=== PATIENT | female | born 1990 | race Caucasian/White ===

== ENCOUNTER 2019-12-25 18:56 | Inpatient (IN) | payer OTHER ==
[2019-12-25] MEDS ORDERED: fentaNYL 100 MCG/2 ML SDV EPIDUR PRN (19:50)
[2019-12-25] MEDS ORDERED: ePHEDrine 50 MG/ML SDV IVPUSH PRN (19:50)
[2019-12-25] MEDS ORDERED: diphenhydrAMINE 50 MG/ML SDV IVPUSH PRN (19:50)
[2019-12-25] MEDS ORDERED: Sodium Chloride 0.9% 10 ML Syringe FLUSH PRN (20:07)
[2019-12-25] MEDS ORDERED: Ondansetron 4 MG/2 ML SDV IVPUSH PRN (20:07)
[2019-12-25] MEDS ORDERED: Oxytocin/Lactated Ringers 10 UNIT/1,000 ML BAG IV SCH ×2 (20:15)
--- NOTE | 2019-12-25 20:49 | PCM.LDHP ---
L&D History of Present Illness - General Date of Service: 12/25/19 Admit Problem/Dx: Patient Status Order with Admit Dx/Problem 12/25/19 20:07 Patient Status [ADT] Routine Admission Diagnosis/Problem Admission Diagnosis/Problem 12/25/19 20:37 Varsha is a 29-year-old 1 para 0 female who is presently at 39-5/7 weeks gestational age with an AFIA of 12/27/2019 who is admitted on the evening of 12/25/2019 for elective induction of labor. Source of Information: Patient History Limitations: Reports: No Limitations - History of Present Illness Introduction:: Varsha is a 29-year-old 1 para 0 female who is presently at 39-5/7 weeks gestational age with an AFIA of 12/27/2019 who is admitted on the evening of 12/25/2019 for elective induction of labor.The procedure and process of elective induction of labor, its risks, benefits, alternatives of care such as allowing for onset of natural labor along with follow-up were all discussed in detail with patient. She appears to understand and wishes to proceed. 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 18 weeks and 6 days and 22 weeks and 1 day. Patient's last menstrual period was relatively certain. Her cycles occur every 30 days. She had menarche at age 11. She is not using any control to time conception. She has had one abnormal Pap smear proximal 8 years ago followed by colposcopy and removal of some abnormal cells. She denies any other STI's. course: Patient was seen on a very regular basis. She had her first visit on 06/09/2019. She was seen on a regular basis. She was a centering patient. Her weigh 18 during the course of was from 217 pounds to 234 pounds for a 17 pound increase. Her vital signs remained stable throughout the course and her fundal height growth was appropriate. She is group B strep negative. She is Rh- with type a blood and had been administered on 10/03/2019. She had prequel noninvasive screen performed which returned negative. She is immune to varicella. She plans to breast-feed. She would like to have an epidural for labor analgesia. She is noted at first pelvis to have somewhat of a narrow pubic arch/borderline pelvis. Patient had her flu shot on 07/11/2019. Her diphtheria, pertussis, tetanus immunization was given on 11/14/2019. She is rubella immune. She had her hepatitis B immunization course in 2000. Laboratory testing shows blood to be A- with a negative MRI screening. First labs showed a hemoglobin 12.8 g/dL and platelets at 288,000. She is rubella immune. RPR is nonreactive. Hepatitis B surface antigen and HIV assays were both negative. Chlamydia and gonorrhea tests were both negative. Second trimester testing showed hemoglobin 12.2 g/dL and platelets at 278,000. Her 1 hour GTT was normal at 116. Antibody screen was negative and RhoGAM was given at that time. She is rubella immune. RPR is nonreactive on 2019. Her group B strep screen was negative. Allergies: None Medications: vitamins 1 daily Past medical history: 1. History of abnormal Pap smear with biopsy. Past surgical history: Unremarkable. Family history: Mother secondary to surgical complications during breast augmentation surgery at age 31. Possible anesthesia related issues. Father is alive and is status post recent liver transplant which was done secondary to alcohol related issues. One brother and one sister are each alive and well. Maternal grandmother is alive with Parkinson's syndrome. Maternal grandfather is alive and well. Paternal grandmother is secondary to COPD. Paternal grandfather secondary to heart disease and a brain aneurysm. There is no other known family history of cancer, bleeding or clotting abnormality, anesthesia problems, -related problems or other concerns. Social history: The patient is single. 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 She does not use any significant most alcohol, drugs or tobacco. She lives in [place]. Her significant other is Giovany Meza. Review of systems: In general patient has no complaints. She reporting good activity. Occasional contractions. Skin: Negative Lungs: No infectious symptoms or shortness of breath Cardiovascular: No chest pain or exercise intolerance Breasts: Breast changes associated with .. GI: Negative : Normal body habitus changes with increasing fundal height related to . Musculoskeletal: Negative Neurological: Negative In general the patient is well-developed, well-nourished, pleasant female of stated age in no acute distress. On last evaluation in clinic patient's blood pressure was 122/80 weight was 234 pounds with a pre- weight of 217 pounds. Height is 5 feet 2 inches. Prepregnancy body mass index was 35.7. On last evaluation was 140 bpm. Skin is warm dry without lesions. HEENT, neck and back within normal limits. Lungs are clear with good breath sounds in all lung couch. Cardiovascular exam shows regular and rhythm without murmurs. Breast exam is deferred at this time having been done at first visit found to be normal it is not repeated at this time. Abdomen is gravid with fundal height on last evaluation clinic at 39 cm. Baby in vertex presentation. Genital digital exam shows cervix to be 2 cm, -3 station, mid position, very soft, 8% effaced. Artificial rupture membranes is undertaken with resultant clear amniotic fluid. Patient tolerated this well. Extremities and neurological exam are grossly within normal limits. - Related Data Allergies/Adverse Reactions: Allergies Allergy/AdvReac Type Severity Reaction Status Date / Time No Known Allergies Allergy Verified 12/25/19 19:17 Home Medications: Home Meds Vits #93/Iron Fum/FA [ Formula Tablet] 12/25/19 [History] Social & Family History - Tobacco Use Smoking Status *Q: Never Smoker - Recreational Drug Use Recreational Drug Use: No H&P Review of Systems - Review of Systems: Review Of Systems: See Below L&D Exam - Exam Exam: See Below - Vital Signs Vital Signs: Last Vital Signs Temp 36.9 C 12/25/19 19:14 Pulse 92 12/25/19 19:14 Resp 16 12/25/19 19:14 BP 131/84 12/25/19 19:14 Pulse Ox 100 12/25/19 19:14 Weight: 106.05 kg - Patient Data Lab Results Last 24 hrs: Laboratory Results - last 24 hr 12/25/19 Range/Units 20:25 WBC 13.44 H (3.98-10.04) K/mm3 RBC 4.02 (3.98-5.22) M/mm3 Hgb 11.8 (11.2-15.7) gm/dl Hct 36.2 (34.1-44.9) % MCV 90.0 (79.4-94.8) fl MCH 29.4 (25.6-32.2) pg MCHC 32.6 (32.2-35.5) g/dl RDW Std Deviation 48.3 H (36.4-46.3) fL Plt Count 239 (182-369) K/mm3 MPV 9.7 (9.4-12.3) fl Neut % (Auto) 71.7 H (34.0-71.1) % Lymph % (Auto) 19.8 (19.3-51.7) % [place] % (Auto) 7.1 (4.7-12.5) % Eos % (Auto) 0.6 L (0.7-5.8) Baso % (Auto) 0.1 (0.1-1.2) % Neut # (Auto) 9.62 H (1.56-6.13) K/mm3 Lymph # (Auto) 2.66 (1.18-3.74) K/mm3 [place] # (Auto) 0.96 H (0.24-0.36) K/mm3 Eos # (Auto) 0.08 (0.04-0.36) K/mm3 Baso # (Auto) 0.02 (0.01-0.08) K/mm3 Result Diagrams: 12/25/19 20:25 Problem List Initiated/Reviewed/Updated: Yes Orders Last 24hrs: Active Orders 24 hr Category Date Time Status Patient Status [ADT] Routine ADT 12/25/19 20:07 Active Activity as Tolerated [RC] PFP Care 12/25/19 20:07 Active Communication Order [RC] ASDIRECTED Care 12/25/19 20:07 Active Heart Tones [RC] ASDIRECTED Care 12/25/19 20:07 Active Non Stress Test [RC] PER UNIT ROUTINE Care 12/25/19 20:07 Active Notify Provider [RC] ASDIRECTED Care 12/25/19 19:50 Active Notify Provider [RC] PFP Care 12/25/19 20:07 Active Notify Provider [RC] PRN Care 12/25/19 20:07 Active Peripheral IV Care [RC] . DIRECTED Care 12/25/19 20:07 Active Vital Signs [RC] PER UNIT ROUTINE Care 12/25/19 20:07 Active Regular Diet [DIET] Diet 12/25/19 Dinner Active RAPID PLASMA REAGIN,RPR [CHEM] Routine Lab 12/25/19 20:25 Received TYPE AND SCREEN [BBK] Stat Lab 12/25/19 20:25 Received Bupivacaine/fentaNYL/NS [fentaNYL/Bupivacaine/NS 2 MCG- Med 12/25/19 19:50 Active 0.125% 100 ML] 100 ml EPIDUR ASDIRECTED PRN Lactated Ringers [Ringers, Lactated] 1,000 ml Med 12/25/19 20:15 Active IV ASDIRECTED Ondansetron [Zofran] Med 12/25/19 20:07 Active 4 mg IVPUSH Q4H PRN Oxytocin/Lactated Ringers [Pitocin in LR 10 Units/1,000 Med 12/25/19 20:15 Active ML] 10 unit in 1,000 ml IV .CONTINUOUS Oxytocin/Lactated Ringers [Pitocin in LR 10 Units/1,000 Med 12/25/19 20:15 Active ML] 10 unit in 1,000 ml IV TITRATE Sodium Chloride 0.9% [Saline Flush] Med 12/25/19 20:07 Active 10 ml FLUSH ASDIRECTED PRN diphenhydrAMINE [Benadryl] Med 12/25/19 19:50 Active 25 mg IVPUSH Q6H PRN ePHEDrine [ePHEDrine sulfate] Med 12/25/19 19:50 Active 5 mg IVPUSH ASDIRECTED PRN fentaNYL [Sublimaze] Med 12/25/19 19:50 Active 100 mcg EPIDUR Q3H PRN Electronic Heart Tones Ext w TOCO [WOMSER] Oth 12/25/19 20:07 Ordered Routine Electronic Heart Tones Internal [WOMSER] Per Unit Oth 12/25/19 20:07 Ordered Routine Peripheral IV Insertion Adult [OM.PC] Routine Oth 12/25/19 20:07 Ordered Resuscitation Status Routine Resus Stat 12/25/19 20:07 Ordered Medication Orders Diphenhydramine HCl (Benadryl) 25 mg IVPUSH Q6H PRN PRN Reason: pruritis Ephedrine Sulfate (Ephedrine Sulfate) 5 mg IVPUSH ASDIRECTED PRN PRN Reason: Hypotension Fentanyl (Sublimaze) 100 mcg EPIDUR Q3H PRN PRN Reason: Pain Fentanyl/Bupivacaine HCl (Fentanyl/Bupivacaine/Ns 2 Mcg-0.125% 100 Ml) 100 ml EPIDUR ASDIRECTED PRN PRN Reason: Pain Lactated Ringer's (Ringers, Lactated) 1,000 mls @ 100 mls/hr IV ASDIRECTED NADIRA Oxytocin/Lactated Ringer's (Pitocin In Lr 10 Units/1,000 Ml) 10 unit in 1,000 mls @ 500 mls/hr IV .CONTINUOUS NADIRA Oxytocin/Lactated Ringer's (Pitocin In Lr 10 Units/1,000 Ml) 10 unit in 1,000 mls @ 12 mls/hr IV TITRATE NADIRA; Protocol Ondansetron HCl (Zofran) 4 mg IVPUSH Q4H PRN PRN Reason: Nausea/Vomiting Sodium Chloride (Saline Flush) 10 ml FLUSH ASDIRECTED PRN PRN Reason: Keep Vein Open Assessment/Plan Comment:: 1. 39-5/7 week intrauterine admitted for elective induction of labor. 2. Group B strep negative 3. Patient plans to breast-feed 4. Patient desires epidural in labor and delivery. 5. Patient is rubella immune. Flu shot has been given. She received her diphtheria, pertussis, tetanus immunization during her course. 6. Patient has A- blood. She is a potential Rh immunoglobulin candidate after delivery 7. Patient had pre-quel noninvasive screen done during her course and it returned negative. 8. Patient felt to have somewhat of a narrow pubic arch and borderline pelvis. 9. Patient reporting no symptoms and displaying no signs of covid19 infection 10. Patient is a centering patient Plan: 1. Artificial rupture membranes induction of labor with Pitocin as indicated by her labor pattern. 2. Epidural when necessary for pain control in labor and delivery 3. Support breast-feeding decision 4. Anticipate normal spontaneous vaginal delivery. Her labor very closely to make sure there is no arrest of dissent/labor. 5. CBC and RPR upon admission per protocol.
[2019-12-25] MEDS: Lactated Ringers 1,000 ML IV SCH (22:44)
--- NOTE | 2019-12-25 23:38 | PCM.PREANE ---
Preanesthetic Assessment - Anesthesia/Transfusion/Family Hx Anesthesia History: No Prior Anesthesia Transfusion History: No Prior Transfusion(s) - Review of Systems General: No Symptoms Pulmonary: No Symptoms Cardiovascular: No Symptoms Gastrointestinal: No Symptoms Neurological: No Symptoms Other: Reports: None - Physical Assessment Vital Signs: Last Vital Signs Temp 98.5 F 12/25/19 19:14 Pulse 92 12/25/19 19:14 Resp 16 12/25/19 19:14 BP 131/84 12/25/19 19:14 Pulse Ox 100 12/25/19 19:14 Height: 1.57 m Weight: 106.05 kg ASA Class: 2 Mental Status: Alert & Oriented x3 Airway Class: Mallampati = 2 Dentition: Reports: Normal Dentition Thyro-Mental Finger Breadths: 3 Mouth Opening Finger Breadths: 3 ROM/Head Extension: Full Lungs: Clear to Auscultation, Normal Respiratory Effort Cardiovascular: Regular Rate, Regular Rhythm - Lab Values: Laboratory Last Values WBC 13.44 K/mm3 (3.98-10.04) H 12/25/19 20:25 RBC 4.02 M/mm3 (3.98-5.22) 12/25/19 20:25 Hgb 11.8 gm/dl (11.2-15.7) 12/25/19 20:25 Hct 36.2 % (34.1-44.9) 12/25/19 20:25 MCV 90.0 fl (79.4-94.8) 12/25/19 20:25 MCH 29.4 pg (25.6-32.2) 12/25/19 20: MCHC 32.6 g/dl (32.2-35.5) 12/25/19 20:25 RDW Std Deviation 48.3 fL (36.4-46.3) H 12/25/19 20:25 Plt Count 239 K/mm3 (182-369) 12/25/19 20:25 MPV 9.7 fl (9.4-12.3) 12/25/19 20:25 Neut % (Auto) 71.7 % (34.0-71.1) H 12/25/19 20:25 Lymph % (Auto) 19.8 % (19.3-51.7) 12/25/19 20:25 [place] % (Auto) 7.1 % (4.7-12.5) 12/25/19 20:25 Eos % (Auto) 0.6 (0.7-5.8) L 12/25/19 20:25 Baso % (Auto) 0.1 % (0.1-1.2) 12/25/19 20:25 Neut # (Auto) 9.62 K/mm3 (1.56-6.13) H 12/25/19 20:25 Lymph # (Auto) 2.66 K/mm3 (1.18-3.74) 12/25/19 20:25 [place] # (Auto) 0.96 K/mm3 (0.24-0.36) H 12/25/19 20:25 Eos # (Auto) 0.08 K/mm3 (0.04-0.36) 12/25/19 20:25 Baso # (Auto) 0.02 K/mm3 (0.01-0.08) 12/25/19 20:25 Blood Type A NEGATIVE 12/25/19 20:25 - Allergies Allergies/Adverse Reactions: Allergies Allergy/AdvReac Type Severity Reaction Status Date / Time No Known Allergies Allergy Verified 12/25/19 19:17 - Acknowledgements Anesthesia Type Planned: Epidural Pt an Appropriate Candidate for the Planned Anesthesia: Yes Alternatives and Risks of Anesthesia Discussed w Pt/Guardian: Yes Pt/Guardian Understands and Agrees with Anesthesia Plan: Yes 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: , Other (See Below) Other OB/BYN History: abnormal pap Endocrine/Metabolic History: Reports: Obesity/BMI 30+ Dermatologic History: Reports: Other (See Below) Other Dermatologic History: skin lesion on left side of lower abdomen - SUBSTANCE USE Smoking Status *Q: Never Smoker Recreational Drug Use History: No - HOME MEDS Home Medications: Home Meds Vits #93/Iron Fum/FA [ Formula Tablet] 12/25/19 [History] - CURRENT (IN HOUSE) MEDS Current Meds: Current Medications Diphenhydramine HCl (Benadryl) 25 mg IVPUSH Q6H PRN PRN Reason: pruritis Ephedrine Sulfate (Ephedrine Sulfate) 5 mg IVPUSH ASDIRECTED PRN PRN Reason: Hypotension Fentanyl (Sublimaze) 100 mcg EPIDUR Q3H PRN PRN Reason: Pain Fentanyl/Bupivacaine HCl (Fentanyl/Bupivacaine/Ns 2 Mcg-0.125% 100 Ml) 100 ml EPIDUR ASDIRECTED PRN PRN Reason: Pain Lactated Ringer's (Ringers, Lactated) 1,000 mls @ 100 mls/hr IV ASDIRECTED NADIRA Last Admin: 12/25/19 22:44 Dose: 100 mls/hr Oxytocin/Lactated Ringer's (Pitocin In Lr 10 Units/1,000 Ml) 10 unit in 1,000 mls @ 500 mls/hr IV .CONTINUOUS NADIRA Oxytocin/Lactated Ringer's (Pitocin In Lr 10 Units/1,000 Ml) 10 unit in 1,000 mls @ 12 mls/hr IV TITRATE NADIRA; Protocol Last Titration: 12/25/19 23:16 Dose: 4 munits/min, 24 mls/hr Ondansetron HCl (Zofran) 4 mg IVPUSH Q4H PRN PRN Reason: Nausea/Vomiting Sodium Chloride (Saline Flush) 10 ml FLUSH ASDIRECTED PRN PRN Reason: Keep Vein Open
[2019-12-26] MEDS: Lactated Ringers 1,000 ML IV SCH ×4 (07:18→19:32)
[2019-12-26] MEDS: Bupivacaine/fentaNYL/NS 100 ML Bag EPIDUR PRN ×2 (07:21→16:21)
[2019-12-26] MEDS ORDERED: Oxytocin/Lactated Ringers 20 UNIT/1,000 ML BAG IV SCH (09:45)
--- NOTE | 2019-12-26 14:07 | PCM.SN ---
- Free Text/Narrative Note: Varsha was examined approximately 9:00 on 12/26/2019. At that time she was approximately 4 cm dilated, 80% effaced, soft, IUPC was placed without problems. Clear amniotic fluid was present. Actions were somewhat irregular but were moderate in intensity and after the IUPC was placed reached a maximum of approximately 60 mmHg pressure. heart tones reassuring. Patient's vital signs are stable. She is presently on 18 milliunits of Pitocin per minute. Historian well as she has had an epidural placed. Assessment: Steady progress in labor. heart tones reassuring. Plan: Continue his present line of action. Anticipate .
[2019-12-26] MEDS ORDERED: ceFAZolin 2 GM in Premix Bag 1 BAG IV SCH (15:45)
[2019-12-26] MEDS ORDERED: ceFAZolin/Dextrose,Iso-Osmotic 2 GM/50 ML Duplex Bag IV ONE (15:51)
[2019-12-26] MEDS ORDERED: ceFAZolin 2 GM in Premix Bag 1 BAG IV ONE ×2 (16:00→19:00)
[2019-12-26] MEDS ORDERED: Acetaminophen 325 MG Tab PO ONE (16:00)
[2019-12-26] MEDS ORDERED: Metoclopramide 10 MG/2 ML SDV IVPUSH ONE (19:00)
[2019-12-26] MEDS ORDERED: Azithromycin 500 MG in Sodium Chloride 0.9% 250 ML IV ONE (19:00)
[2019-12-26] MEDS ORDERED: Citric Acid/Sodium Citrate Solution 30 ML Cup PO ONE (19:00)
--- NOTE | 2019-12-26 19:13 | PCM.SN ---
- Free Text/Narrative Note: Varsha has continued to have adequate contractions as is evidenced by the intrauterine pressure catheter. She has however dilated only to 6+ centimeters in the course of the last 8 hours, having been approximated 4 cm in the late a.m. Pitocin was been at 30 units per minute. Heart tones are been reassuring with good variability and good accelerations. Presently she is 6+ centimeters, 90% effaced, -3 station and ballotable, mid position to anterior, very soft. Vertex presentation. Her initial evaluation and ongoing evaluations clinic it was apparent that patient's pelvis is somewhat borderline to contracted in its dimensions. Patient is aware that this makes her at higher risk for section. The options of continued labor versus primary section are discussed in detail the patient. At this time, she desires proceeding with primary section. Consent is signed. Assessment: 1. 39-5/7 week intrauterine upon admission for elective induction of labor now with what appears to be failure to progress secondary to cephalopelvic disproportion. 2.Febrile in labor. Patient was received Ancef. She will receive another dose Ancef plus azithromycin per protocol preoperatively. Generally reassuring heart tones Plan: 1. Discussion is held with patient options including continued labor versus section. Patient has opted for section. 2. Consent is signed. Patient has no further questions start as her significant other. 3. SCDs for DVT prophylaxis. 4. Patient has had appropriate labs performed 5. Reglan and Bicitra per protocol
[2019-12-26] MEDS ORDERED: Oxytocin 10 Units/1 ML SDV ONE ×2 (19:18→19:19)
[2019-12-26] MEDS ORDERED: Lactated Ringers 2,000 ML ONE (19:18)
[2019-12-26] MEDS ORDERED: Ketorolac 30 MG/ML SDV ONE (19:18)
[2019-12-26] MEDS ORDERED: ceFAZolin 1 GM Vial ONE (19:18)
[2019-12-26] MEDS ORDERED: Ondansetron 4 MG/2 ML SDV ONE (19:18)
[2019-12-26] MEDS ORDERED: Sodium Bicarbonate 8.4% 50 MEQ/50 ML SDV ONE ×2 (19:19→19:20)
[2019-12-26] MEDS ORDERED: Lidocaine 2% with EPINEPHrine 1:200,000 20 ML SDV ONE (19:19)
[2019-12-26] MEDS ORDERED: fentaNYL 100 MCG/2 ML SDV ONE (19:19)
[2019-12-26] MEDS ORDERED: Bupivacaine 0.5% 30 ML SDV ONE (19:24)
[2019-12-26] MEDS ORDERED: ceFAZolin 1 GM in Premix Bag 1 BAG IV ONE (19:30)
--- NOTE | 2019-12-26 19:31 | PCM.OPNOTE ---
- General Post-Op/Procedure Note Date of Surgery/Procedure: 12/26/19 Operative Procedure(s): Primary or uterine segment transverse section through Pfannenstiel skin incision Findings: Baby is in vertex presentation. Amniotic fluid was clear. Uterus tubes and ovaries were consistent with term . Findings consistent with probable failure to progress secondary to cephalopelvic disproportion. Pre Op Diagnosis: 1. 39-6/7 week intrauterine , failure to progress,. 2. Febrile in labor. Post-Op Diagnosis: Same with delivery of a viable, rivas, male infant with Apgars of 8 and 9, a weight of 3170 g (7 lbs. 0 oz.) at 2001 hours on 12/26/2019 remained is a Torsten Meza Anesthesia Technique: Epidural Other Anesthesia Type: Marcaine 0.5%20 mL local Primary Surgeon: Eliu Espinosa Secondary Surgeon: Darby Luo Reason Sorting Machine Attendant Was Necessary: Retraction, assistance, patient safety, quality of care. Fluid Replacement, Intraop: 1,400 Output, Urine Amount: 225 EBL in mLs: 700 Drain/Tube Comments:: Indwelling bladder catheter Complications: None Condition: Good Free Text/Narrative:: Intake & Output 12/26/19 12/26/19 12/26/19 06:59 14:59 22:59 Intake Total 2560 2300 Output Total 2300 Balance 2560 0 Surgery duration: 37 minutes Procedure: The patient is appropriately consented. Patient was transferred to the room and placed in a sitting position. Epidural catheter had already been placed and epidural anesthesia was administered. After confirmation of adequate anesthesia patient was positioned in a supine position with a wedge under her right side to facilitate left lateral positioning. The patient was prepped and draped in usual fashion after Gore catheter was already placed . The anesthetic was checked and found to be adequate. 20 mL of Marcaine 0.5% was injected locally in the Pfannenstiel incision site. The Pfannenstiel skin incision was then made and carried down through skin, subcutaneous and fascial layers. The fascia was then undermined superiorly and inferiorly to allow for adequate operating room. The recti muscles midline and preperitoneal fat was bluntly dissected. Peritoneal cavity was entered longitudinally. The vesicouterine peritoneum was then incised transversely and bladder flap was developed. Myometrium was incised transversely to the level of the amniotic sac. This incision was extended bilaterally in a blunt fashion. The amniotic sac was then entered resulting in clear amniotic fluid. A hand is placed in the low uterine segment and the baby' s head was brought forth through the incision. The baby was completely delivered using fundal pressure in a routine fashion. The nose and mouth were bulb suctioned. Baby's cord was clamped x2 cut and baby was handed off to attending supervisor powder and primer canning Dr Larsen. Placenta was expressed after cord blood was obtained. Uterus was then exteriorized to allow for easier closure. The cervix was assessed and found to be dilated adequately to allow egress of blood. The uterus was closed in 2 layers. The first layer a running locked suture of 0 Monocryl, the second layer a running locked vertical mattress suture of 0 Monocryl. Hemostasis confirmed at this time. Sponge instrument needle counts are correct. The uterus was returned to the abdominal cavity and lateral gutters were cleared of blood. Once again sponge needle counts are correct. The anterior abdominal wall was closed with a #1 PDS suture from angle to angle. The subcutaneous area was found to be free of any bleeders. interrupted sutures of 3-0 Monocryl were used to reapproximate the subcutaneous layer. Skin was closed with a running subcuticular stitch of 3-0 Monocryl in a vertical mattress suture fashion using a Edgar needle. Prineo mesh/glue was then applied to further approximate the incision. It should be noted that patient received 1 g of Ancef and cc (she had received 1 g of Ancef approximately 2 hours prior to the preoperative dose) and 500 mg of azithromycin preoperatively for infection prophylaxis and had Pitocin infused after delivery of the placenta to facilitate uterine contraction. She also had sequential compression stockings in place for DVT prophylaxis. Patient was discharged from the operating room in satisfactory condition.
[2019-12-26] MEDS ORDERED: ePHEDrine Sulfate/0.9% NaCl/Pf 25 MG/5 ML SYRINGE IV ONE (19:49)
[2019-12-26] MEDS ORDERED: fentaNYL 100 MCG/2 ML SDV IVPUSH PRN (19:53)
[2019-12-26] MEDS ORDERED: diphenhydrAMINE 50 MG/ML SDV IVPUSH PRN ×2 (19:53→23:10)
[2019-12-26] MEDS ORDERED: Ondansetron 4 MG/2 ML SDV IVPUSH PRN (19:53)
[2019-12-26] MEDS ORDERED: Morphine PF 1 MG/ML Amp ONE (19:57)
[2019-12-26] MEDS ORDERED: Lidocaine 0.5% 50 ML SDV ONE (20:26)
--- NOTE | 2019-12-26 20:41 | PCM.POSTAN ---
POST ANESTHESIA ASSESSMENT - MENTAL STATUS Mental Status: Alert, Oriented - VITAL SIGNS Vital Signs: Last Vital Signs Temp 100.6 F 12/26/19 18:40 Pulse 108 H 12/26/19 18:40 Resp 18 12/26/19 18:40 BP 137/77 12/26/19 18:40 Pulse Ox 99 12/26/19 18:40 2035 113/89 114 20 99.3 100% - RESPIRATORY Respiratory Status: Respiratory Rate WNL, Airway Patent, O2 Saturation Stable, Supplemental Oxygen - CARDIOVASCULAR CV Status: Pulse Rate WNL, Blood Pressure Stable - GASTROINTESTINAL GI Status: No Symptoms - PAIN Pain Score: 0 - POST OP HYDRATION Hydration Status: Adequate & Stable
[2019-12-26] MEDS ORDERED: ceFAZolin 1 GM in Premix Bag 1 BAG IV SCH ×2 (22:00→23:10)
[2019-12-26] MEDS ORDERED: Dextrose 5%-Lactated Ringers 1,000 ML IV SCH ×2 (23:00→23:10)
[2019-12-26] MEDS ORDERED: Ondansetron 4 MG/2 ML SDV IV PRN (23:10)
[2019-12-26] MEDS ORDERED: Acetaminophen/oxyCODONE 325-5 MG Tab PO PRN ×2 (23:10)
[2019-12-26] MEDS ORDERED: Naloxone 0.4 MG/ML SDV IVPUSH PRN (23:10)
[2019-12-26] MEDS ORDERED: Docusate Sodium 100 MG Cap PO PRN (23:10)
[2019-12-26] MEDS ORDERED: ePHEDrine 50 MG/ML SDV IVPUSH PRN (23:10)
[2019-12-26] MEDS ORDERED: Ibuprofen 800 MG Tab PO SCH (23:10)
[2019-12-26] MEDS: ceFAZolin 1 GM in Premix Bag 1 BAG IV SCH (23:42)
[2019-12-27] MEDS: Ibuprofen 800 MG Tab PO SCH ×3 (02:23→17:09)
[2019-12-27] MEDS: ceFAZolin 1 GM in Premix Bag 1 BAG IV SCH ×2 (04:55→13:56)
--- NOTE | 2019-12-27 08:22 | PCM48HPAN ---
Post Anesthesia Note - EVALUATION WITHIN 48HRS OF ANESTHETIC Vital Signs in Normal Range: Yes Patient Participated in Evaluation: Yes Respiratory Function Stable: Yes Airway Patent: Yes Cardiovascular Function Stable: Yes Hydration Status Stable: Yes Pain Control Satisfactory: Yes Nausea and Vomiting Control Satisfactory: Yes Mental Status Recovered: Yes Vital Signs: Last Vital Signs Temp 37.2 C 12/27/19 04:06 Pulse 100 12/27/19 04:06 Resp 16 12/27/19 07:00 BP 116/59 L 12/27/19 04:06 Pulse Ox 98 12/27/19 07:00
[2019-12-27] MEDS: Simethicone 80 MG Tab.Chew PO SCH ×3 (09:36→22:53)
[2019-12-27] MEDS: Prenatal Multivitamin with Calcium/Folic Acid/Iron Tab PO SCH (17:10)
[2019-12-27] MEDS ORDERED: diphenhydrAMINE 25 MG Cap PO PRN (22:42)
[2019-12-28] MEDS: Ibuprofen 800 MG Tab PO SCH ×4 (03:00→10:39)
--- NOTE | 2019-12-28 08:57 | PCM.SN ---
- Free Text/Narrative Note: Post Operative Progress Note POD #2 Subjective: Doing well overall. Ambulating without difficulty but continues to move somewhat slowly. He reports that it is improved this morning. Lochia minimal. Voiding without difficulty. Passing flatus but has not had a bowel movement at this time. Tolerating regular diet without nausea or vomiting. Pain controlled with oral medications. Breast-feeding with minimal difficulty. Objective: Vitals: Vital Signs - 24 hr 12/27/19 12/28/19 12/28/19 20:35 03:06 08:17 Temperature 37.0 C 37.1 C 36.6 C Pulse, 88 88 90 Peripheral Pulse, Peripheral [ Pulse Oximetry] Respiratory 15 14 16 Rate Blood Pressure 128/75 133/85 138/82 O2 Sat by Pulse 98 100 98 Oximetry Physical Exam General: Alert and oriented, no acute distress Lungs: Clear to auscultation bilaterally Heart: Regular rate and rhythm Abdomen: Soft, minimal appropriate tenderness, non-distended, fundus midline, nontender and at the umbilicus Incision: Clean, dry and intact, no erythema, bleeding or drainage with Prineo dressing in place Extremities: 1+ edema in bilateral lower extremities to knees Labs: Laboratory Tests 12/25/19 12/25/19 12/25/19 Range/Units 20:25 20:25 20:25 WBC 13.44 H (3.98-10.04) K/mm3 RBC 4.02 (3.98-5.22) M/mm3 Hgb 11.8 (11.2-15.7) gm/dl Hct 36.2 (34.1-44.9) % MCV 90.0 (79.4-94.8) fl MCH 29.4 (25.6-32.2) pg MCHC 32.6 (32.2-35.5) g/dl RDW Std Deviation 48.3 H (36.4-46.3) fL Plt Count 239 (182-369) K/mm3 MPV 9.7 (9.4-12.3) fl Neut % (Auto) 71.7 H (34.0-71.1) % Lymph % (Auto) 19.8 (19.3-51.7) % [place] % (Auto) 7.1 (4.7-12.5) % Eos % (Auto) 0.6 L (0.7-5.8) Baso % (Auto) 0.1 (0.1-1.2) % Neut # (Auto) 9.62 H (1.56-6.13) K/mm3 Lymph # (Auto) 2.66 (1.18-3.74) K/mm3 [place] # (Auto) 0.96 H (0.24-0.36) K/mm3 Eos # (Auto) 0.08 (0.04-0.36) K/mm3 Baso # (Auto) 0.02 (0.01-0.08) K/mm3 Manual Slide Review RPR Non-reactive (NONREACTIVE) Blood Type A NEGATIVE Gel Antibody Screen Negative Screen RhIG Candidate? Rhogam Indicated 12/27/19 12/27/19 Range/Units 05:54 05:54 WBC 22.24 H (3.98-10.04) K/mm3 RBC 3.31 L (3.98-5.22) M/mm3 Hgb 9.8 L D (11.2-15.7) gm/dl Hct 30.7 L (34.1-44.9) % MCV 92.7 (79.4-94.8) fl MCH 29.6 (25.6-32.2) pg MCHC 31.9 L (32.2-35.5) g/dl RDW Std Deviation 49.5 H (36.4-46.3) fL Plt Count 203 (182-369) K/mm3 MPV 9.9 (9.4-12.3) fl Neut % (Auto) 84.4 H (34.0-71.1) % Lymph % (Auto) 9.1 L (19.3-51.7) % [place] % (Auto) 6.0 (4.7-12.5) % Eos % (Auto) 0 L (0.7-5.8) Baso % (Auto) 0.1 (0.1-1.2) % Neut # (Auto) 18.76 H (1.56-6.13) K/mm3 Lymph # (Auto) 2.03 (1.18-3.74) K/mm3 [place] # (Auto) 1.33 H (0.24-0.36) K/mm3 Eos # (Auto) 0.01 L (0.04-0.36) K/mm3 Baso # (Auto) 0.02 (0.01-0.08) K/mm3 Manual Slide Review Abnormal smear RPR (NONREACTIVE) Blood Type A NEGATIVE Gel Antibody Screen Negative Screen 0 ros/5 flds - neg RhIG Candidate? Yes Rhogam Indicated Yes, baby rh pos H ASSESSMENT: 29-year-old female -0-0-1 s/p primary section POD #2 for arrest of dilation at approximately 6 cm, complicated by febrile in labor and a negative blood type status post RhoGam administration on postop day #1 PLAN: Doing well Breast-feeding with minimal difficulty. Assist as needed Incision healing well. Continue to keep clean and dry. Lochia minimal. Continue to monitor for appropriate lochia. Continue routine post-operative care Patient with A- blood type and infant with A+ blood type, status post RhoGam on postop day #1. Anticipate discharge home today Mahesh Hurst MD 8:56 AM 12/28/2019
[2019-12-28] MEDS: Prenatal Multivitamin with Calcium/Folic Acid/Iron Tab PO SCH (09:09)
[2019-12-28] MEDS: Simethicone 80 MG Tab.Chew PO SCH (09:09)
--- NOTE | 2019-12-28 09:16 | PCM.DCSUM1 ---
Discharge Summary - Hospital Course Free Text/Narrative:: Surgery duration: 37 minutes Procedure: The patient is appropriately consented. Patient was transferred to the room and placed in a sitting position. Epidural catheter had already been placed and epidural anesthesia was administered. After confirmation of adequate anesthesia patient was positioned in a supine position with a wedge under her right side to facilitate left lateral positioning. The patient was prepped and draped in usual fashion after Gore catheter was already placed . The anesthetic was checked and found to be adequate. 20 mL of Marcaine 0.5% was injected locally in the Pfannenstiel incision site. The Pfannenstiel skin incision was then made and carried down through skin, subcutaneous and fascial layers. The fascia was then undermined superiorly and inferiorly to allow for adequate operating room. The recti muscles midline and preperitoneal fat was bluntly dissected. Peritoneal cavity was entered longitudinally. The vesicouterine peritoneum was then incised transversely and bladder flap was developed. Myometrium was incised transversely to the level of the amniotic sac. This incision was extended bilaterally in a blunt fashion. The amniotic sac was then entered resulting in clear amniotic fluid. A hand is placed in the low uterine segment and the baby' s head was brought forth through the incision. The baby was completely delivered using fundal pressure in a routine fashion. The nose and mouth were bulb suctioned. Baby's cord was clamped x2 cut and baby was handed off to attending oil house attendant Dr Larsen. Placenta was expressed after cord blood was obtained. Uterus was then exteriorized to allow for easier closure. The cervix was assessed and found to be dilated adequately to allow egress of blood. The uterus was closed in 2 layers. The first layer a running locked suture of 0 Monocryl, the second layer a running locked vertical mattress suture of 0 Monocryl. Hemostasis confirmed at this time. Sponge instrument needle counts are correct. The uterus was returned to the abdominal cavity and lateral gutters were cleared of blood. Once again sponge needle counts are correct. The anterior abdominal wall was closed with a #1 PDS suture from angle to angle. The subcutaneous area was found to be free of any bleeders. interrupted sutures of 3-0 Monocryl were used to reapproximate the subcutaneous layer. Skin was closed with a running subcuticular stitch of 3-0 Monocryl in a vertical mattress suture fashion using a Edgar needle. Prineo mesh/glue was then applied to further approximate the incision. It should be noted that patient received 1 g of Ancef and cc (she had received 1 g of Ancef approximately 2 hours prior to the preoperative dose) and 500 mg of azithromycin preoperatively for infection prophylaxis and had Pitocin infused after delivery of the placenta to facilitate uterine contraction. She also had sequential compression stockings in place for DVT prophylaxis. Patient was discharged from the operating room in satisfactory condition. HPI Initial Comments: Surgery duration: 37 minutes Procedure: The patient is appropriately consented. Patient was transferred to the room and placed in a sitting position. Epidural catheter had already been placed and epidural anesthesia was administered. After confirmation of adequate anesthesia patient was positioned in a supine position with a wedge under her right side to facilitate left lateral positioning. The patient was prepped and draped in usual fashion after Gore catheter was already placed . The anesthetic was checked and found to be adequate. 20 mL of Marcaine 0.5% was injected locally in the Pfannenstiel incision site. The Pfannenstiel skin incision was then made and carried down through skin, subcutaneous and fascial layers. The fascia was then undermined superiorly and inferiorly to allow for adequate operating room. The recti muscles midline and preperitoneal fat was bluntly dissected. Peritoneal cavity was entered longitudinally. The vesicouterine peritoneum was then incised transversely and bladder flap was developed. Myometrium was incised transversely to the level of the amniotic sac. This incision was extended bilaterally in a blunt fashion. The amniotic sac was then entered resulting in clear amniotic fluid. A hand is placed in the low uterine segment and the baby' s head was brought forth through the incision. The baby was completely delivered using fundal pressure in a routine fashion. The nose and mouth were bulb suctioned. Baby's cord was clamped x2 cut and baby was handed off to attending oil house attendant Dr Larsen. Placenta was expressed after cord blood was obtained. Uterus was then exteriorized to allow for easier closure. The cervix was assessed and found to be dilated adequately to allow egress of blood. The uterus was closed in 2 layers. The first layer a running locked suture of 0 Monocryl, the second layer a running locked vertical mattress suture of 0 Monocryl. Hemostasis confirmed at this time. Sponge instrument needle counts are correct. The uterus was returned to the abdominal cavity and lateral gutters were cleared of blood. Once again sponge needle counts are correct. The anterior abdominal wall was closed with a #1 PDS suture from angle to angle. The subcutaneous area was found to be free of any bleeders. interrupted sutures of 3-0 Monocryl were used to reapproximate the subcutaneous layer. Skin was closed with a running subcuticular stitch of 3-0 Monocryl in a vertical mattress suture fashion using a Edgar needle. Prineo mesh/glue was then applied to further approximate the incision. It should be noted that patient received 1 g of Ancef and cc (she had received 1 g of Ancef approximately 2 hours prior to the preoperative dose) and 500 mg of azithromycin preoperatively for infection prophylaxis and had Pitocin infused after delivery of the placenta to facilitate uterine contraction. She also had sequential compression stockings in place for DVT prophylaxis. Patient was discharged from the operating room in satisfactory condition. Brief History: Surgery duration: 37 minutes. Procedure: The patient is appropriately consented. Patient was transferred to the room and placed in a sitting position. Epidural catheter had already been placed and epidural anesthesia was administered. After confirmation of adequate anesthesia patient was positioned in a supine position with a wedge under her right side to facilitate left lateral positioning. The patient was prepped and draped in usual fashion after Gore catheter was already placed . The anesthetic was checked and found to be adequate. 20 mL of Marcaine 0.5% was injected locally in the Pfannenstiel incision site. The Pfannenstiel skin incision was then made and carried down through skin, subcutaneous and fascial layers. The fascia was then undermined superiorly and inferiorly to allow for adequate operating room. The recti muscles midline and preperitoneal fat was bluntly dissected. Peritoneal cavity was entered longitudinally. The vesicouterine peritoneum was then incised transversely and bladder flap was developed. Myometrium was incised transversely to the level of the amniotic sac. This incision was extended bilaterally in a blunt fashion. The amniotic sac was then entered resulting in clear amniotic fluid. A hand is placed in the low uterine segment and the baby's head was brought forth through the incision. The baby was completely delivered using fundal pressure in a routine fashion. The nose and mouth were bulb suctioned. Baby's cord was clamped x2 cut and baby was handed off to attending oil house attendant Dr Larsen. Placenta was expressed after cord blood was obtained. Uterus was then exteriorized to allow for easier closure. The cervix was assessed and found to be dilated adequately to allow egress of blood. The uterus was closed in 2 layers. The first layer a running locked suture of 0 Monocryl, the second layer a running locked vertical mattress suture of 0 Monocryl. Hemostasis confirmed at this time. Sponge instrument needle counts are correct. The uterus was returned to the abdominal cavity and lateral gutters were cleared of blood. Once again sponge needle counts are correct. The anterior abdominal wall was closed with a #1 PDS suture from angle to angle. The subcutaneous area was found to be free of any bleeders. interrupted sutures of 3-0 Monocryl were used to reapproximate the subcutaneous layer. Skin was closed with a running subcuticular stitch of 3-0 Monocryl in a vertical mattress suture fashion using a Edgar needle. Prineo mesh/glue was then applied to further approximate the incision. It should be noted that patient received 1 g of Ancef and cc (she had received 1 g of Ancef approximately 2 hours prior to the preoperative dose) and 500 mg of azithromycin preoperatively for infection prophylaxis and had Pitocin infused after delivery of the placenta to facilitate uterine contraction. She also had sequential compression stockings in place for DVT prophylaxis. Patient was discharged from the operating room in satisfactory condition. Diagnosis: Stroke: No - Discharge Data Discharge Date: 12/28/19 Discharge Disposition: Home, Self-Care 01 Condition: Good - Referral to Home Health Primary Care Physician: Eliu Espinosa MD - Discharge Diagnosis/Problem(s) (1) 39 weeks gestation of SNOMED Code(s): 91008048 ICD Code: Z3A.39 - 39 WEEKS GESTATION OF Status: Acute Current Visit: Yes (2) Arrest of dilation, delivered, current hospitalization SNOMED Code(s): 12698838, 037883948 ICD Code: O62.1 - SECONDARY UTERINE INERTIA Status: Acute Current Visit: Yes (3) delivery delivered SNOMED Code(s): 221087143 ICD Code: O82 - ENCOUNTER FOR DELIVERY WITHOUT INDICATION Status: Acute Current Visit: Yes - Patient Summary/Data Operative Procedure(s) Performed: Primary or uterine segment transverse section through Pfannenstiel skin incision Complications: None Consults: None Hospital Course: Varsha Dumont was admitted for elective induction of labor. She was GBS negative. On admission her cervix was dilated to 2 cm. She had artificial rupture membranes with clear fluid. She was started on Pitocin for augmentation of contractions. He was given an epidural for anesthesia. She had an intrauterine pressure catheter placed for monitoring of contractions. She had a fever of 100.8 Fahrenheit and was given Ancef 1 g IV for antibiotic prophylaxis. She continued to have contractions and made minimal change throughout the evening of hospital day #2 and was felt to have an arrest of dilation at approximately 6 cm. Decision was made to proceed with primary section. She was taken back to the OR and given additional dosing through her epidural for anesthesia. She was given additional 1 g of Ancef IV as well as a azithromycin 500 mg IV for antibiotic prophylaxis. She was prepped and draped in the normal fashion. On 12/26/2019 she had a primary delivery of a live male at 20:01. Apgars of 8 and 9. Weight of 3170 g (6 pounds 15.8 ounces). She was closed in a normal fashion. There were no complications with the procedure. Please see the operative report for full details. Her post operative course was uneventful. Her pain was well controlled and she had minimal lochia. She was ambulating, tolerating a regular diet and voiding normally. She was passing flatus and has not had a bowel movement. She was breast feeding with minimal difficulty. She was afebrile and her hematocrit was 30.7 on POD #1. She desired to be discharged home on the morning of POD #2. Her blood type is A- and the infant had A+ blood type. She received RhoGam on postop day #1. - Patient Instructions Diet: Regular Diet as Tolerated Activity: Apply Ice, As Tolerated, No Lifting Over 20 Pounds Activity, Other: Nothing in the vagina for 6 weeks Driving: Do Not Drive (While taking narcotic medications are having significant pain) Showering/Bathing: May Shower Wound/Incision Care: Keep Operative Site/Wound Site Clean and Dry Notify Provider of: Fever, Increased Pain, Swelling and Redness, Drainage, Nausea and/or Vomiting Other/Special Instructions: Please contact your physician's office if you note any bleeding or pus coming from the abdominal incision. Please contact your physician's office if you have heavy vaginal bleeding enough to soak a pad in less than an hour for several hours. Monitor for any signs of an infection in the breasts with severe pain or redness of the breast. - Discharge Plan *PRESCRIPTION DRUG MONITORING PROGRAM REVIEWED*: Yes *COPY OF PRESCRIPTION DRUG MONITORING REPORT IN PATIENT CRISTOBAL: No (No report available in [place] drug monitoring program) Prescriptions/Med Rec: Acetaminophen/oxyCODONE [Percocet 325-5 MG] 1 - 2 tab PO Q6H PRN #20 tablet PRN Reason: Pain Docusate Sodium [Colace] 100 mg PO Q12H #60 cap Home Medications: Home Meds Vits #93/Iron Fum/FA [ Formula Tablet] 12/25/19 [History] Acetaminophen/oxyCODONE [Percocet 325-5 MG] 1 - 2 tab PO Q6H PRN #20 tablet 10/17 [Rx] Docusate Sodium [Colace] 100 mg PO Q12H #60 cap 12/28/19 [Rx] Ibuprofen [Motrin] 600 mg PO Q6H PRN #60 tablet 12/28/19 [Rx] Simethicone 80 mg PO PCBED tab.chew 12/28/19 [Rx] Patient Handouts: Care After Delivery Referrals: Eliu Espinosa MD [Primary Care Provider] - (Follow-up in 2 to 3 weeks for routine postoperative visit or earlier as needed.) - Discharge Summary/Plan Comment DC Time >30 min.: No - Patient Data Vitals - Most Recent: Last Vital Signs Temp 36.6 C 12/28/19 08:17 Pulse 90 12/28/19 08:17 Resp 16 12/28/19 08:17 BP 138/82 12/28/19 08:17 Pulse Ox 98 12/28/19 08:17 Weight - Most Recent: 106.05 kg I&O - Last 24 hours: Intake & Output 12/27/19 12/28/19 12/28/19 22:59 06:59 14:59 Intake Total 700 Output Total 1480 Balance -780 Lab Results - Last 24 hrs: Laboratory Results - last 24 hr 12/27/19 Range/Units 05:54 Blood Type A NEGATIVE Gel Antibody Screen Negative Screen 0 ros/5 flds - neg RhIG Candidate? Yes Rhogam Indicated Yes, baby rh pos H Med Orders - Current: Current Medications Diphenhydramine HCl (Benadryl) 25 mg IVPUSH Q6H PRN PRN Reason: Itching or Nausea Diphenhydramine HCl (Benadryl) 25 mg PO Q6H PRN PRN Reason: Itching Last Admin: 12/27/19 22:53 Dose: 25 mg Docusate Sodium (Colace) 100 mg PO Q12H PRN PRN Reason: Constipation Ephedrine Sulfate (Ephedrine Sulfate) 5 mg IVPUSH SEECOMMENT PRN PRN Reason: Other Dextrose/Lactated Ringer's (Dextrose 5%-Lactated Ringers) 1,000 mls @ 125 mls/ hr IV ASDIRECTED [facility] Last Admin: 12/26/19 23:03 Dose: 125 mls/hr Ibuprofen (Motrin) 800 mg PO Q8H [facility] Last Admin: 12/28/19 03:01 Dose: 800 mg Naloxone HCl (Narcan) 0.1 mg IVPUSH SEECOMMENT PRN PRN Reason: Respiratory Depression Ondansetron HCl (Zofran) 4 mg IV Q4H PRN PRN Reason: Nausea/Vomiting Oxycodone/Acetaminophen (Percocet 325-5 Mg) 1 tab PO Q4H PRN PRN Reason: Pain (moderate 4-6) Oxycodone/Acetaminophen (Percocet 325-5 Mg) 2 tab PO Q4H PRN PRN Reason: Pain (severe 7-10) Last Admin: 12/27/19 21:30 Dose: 2 tab Prenat Multivit/Sales Recruitment Specialist/Iron/Folic Ac ( Plus Iron) 1 each PO DAILY [facility] Last Admin: 12/28/19 09:09 Dose: 1 each Simethicone (Simethicone) 80 mg PO PCBED [facility] Last Admin: 12/28/19 09:09 Dose: 80 mg Discontinued Medications Acetaminophen (Tylenol) 975 mg PO NOW ONE Stop: 12/26/19 16:01 Last Admin: 12/26/19 16:02 Dose: 975 mg Bupivacaine HCl (Marcaine 0.5%) Confirm Administered Dose 30 ml .ROUTE .STK-MED ONE Stop: 12/26/19 19:25 Last Admin: 12/26/19 19:53 Dose: 20 ml Cefazolin Sodium (Ancef) Confirm Administered Dose 2 gm .ROUTE .STK-MED ONE Stop: 12/26/19 19:19 Cefazolin Sodium/Dextrose (Ancef) Confirm Administered Dose 2 gm IV .STK-MED ONE Stop: 12/26/19 15:52 Last Admin: 12/26/19 16:03 Dose: Not Given Citric Acid/Sodium Citrate (Bicitra Solution) 30 ml PO ONETIME ONE Stop: 12/26/19 19:01 Last Admin: 12/26/19 19:10 Dose: 30 ml Diphenhydramine HCl (Benadryl) 25 mg IVPUSH Q6H PRN PRN Reason: pruritis Last Admin: 12/26/19 12:42 Dose: 25 mg Diphenhydramine HCl (Benadryl) 25 mg IVPUSH Q6H PRN PRN Reason: Pruritis Ephedrine Sulfate (Ephedrine Sulfate) 5 mg IVPUSH ASDIRECTED PRN PRN Reason: Hypotension Ephedrine Sulfate (Ephedrine 25 Mg/5 Ml Syringe) Confirm Administered Dose 25 mg IV .[employer]-MED ONE Stop: 12/26/19 19:50 Fentanyl (Sublimaze) 100 mcg EPIDUR Q3H PRN PRN Reason: Pain Last Admin: 12/26/19 07:20 Dose: 100 mcg Fentanyl (Sublimaze) Confirm Administered Dose 100 mcg .ROUTE .[employer]MED ONE Stop: 12/26/19 19:20 Fentanyl (Sublimaze) 50 mcg IVPUSH Q5M PRN PRN Reason: Pain Fentanyl/Bupivacaine HCl (Fentanyl/Bupivacaine/Ns 2 Mcg-0.125% 100 Ml) 100 ml EPIDUR ASDIRECTED PRN PRN Reason: Pain Last Admin: 12/26/19 16:21 Dose: 100 ml Lactated Ringer's (Ringers, Lactated) 1,000 mls @ 100 mls/hr IV ASDIRECTED [facility]IRA Last Admin: 12/26/19 19:32 Dose: 999 mls/hr Oxytocin/Lactated Ringer's (Pitocin In Lr 10 Units/1,000 Ml) 10 unit in 1,000 mls @ 500 mls/hr IV .CONTINUOUS NADIRA Oxytocin/Lactated Ringer's (Pitocin In Lr 10 Units/1,000 Ml) 10 unit in 1,000 mls @ 12 mls/hr IV TITRATE NAIDRA; Protocol Last Titration: 12/26/19 09:14 Dose: 20 munits/min, 120 mls/hr Oxytocin/Lactated Ringer's (Pitocin In Lr 20 Units/1,000 Ml) 20 unit in 1,000 mls @ 60 mls/hr IV TITRATE NADIRA; Protocol Last Admin: 12/26/19 09:53 Dose: 60 mls/hr Cefazolin Sodium/Dextrose 2 gm (/ Premix) 50 mls @ 100 mls/hr IV Q6HR NADIRA Cefazolin Sodium/Dextrose 2 gm (/ Premix) 50 mls @ 100 mls/hr IV ONETIME ONE Stop: 12/26/19 16:29 Last Admin: 12/26/19 15:59 Dose: 100 mls/hr Cefazolin Sodium/Dextrose 1 gm (/ Premix) 50 mls @ 100 mls/hr IV Q6H NADIRA Last Admin: 12/26/19 23:01 Dose: 100 mls/hr Azithromycin 500 mg/ Sodium (Chloride) 250 mls @ 250 mls/hr IV ONETIME ONE Stop: 12/26/19 19:59 Last Admin: 12/26/19 19:20 Dose: 250 mls/hr Cefazolin Sodium/Dextrose 2 gm (/ Premix) 50 mls @ 100 mls/hr IV ONETIME ONE Stop: 12/26/19 19:29 Last Admin: 12/26/19 23:42 Dose: Not Given Cefazolin Sodium/Dextrose 1 gm (/ Premix) 50 mls @ 100 mls/hr IV ONETIME ONE Stop: 12/26/19 19:59 Last Admin: 12/26/19 23:02 Dose: Not Given Lactated Ringer's (Ringers, Lactated) Confirm Administered Dose 2,000 mls @ as directed .ROUTE .STK-MED ONE Stop: 12/26/19 19:19 Cefazolin Sodium/Dextrose 1 gm (/ Premix) 50 mls @ 100 mls/hr IV Q6H NADIRA Stop: 12/27/19 20:00 Last Admin: 12/27/19 08:13 Dose: Not Given Dextrose/Lactated Ringer's (Dextrose 5%-Lactated Ringers) 1,000 mls @ 125 mls/ hr IV ASDIRECTED NADIRA Stop: 12/27/19 07:09 Cefazolin Sodium/Dextrose 1 gm (/ Premix) 50 mls @ 100 mls/hr IV Q6H [facility] Last Admin: 12/26/19 23:42 Dose: Not Given Cefazolin Sodium/Dextrose 1 gm (/ Premix) 50 mls @ 100 mls/hr IV Q6H [facility] Last Admin: 12/27/19 13:56 Dose: Not Given Ibuprofen (Motrin) 800 mg PO Q8H [facility] Ketorolac Tromethamine (Toradol) Confirm Administered Dose 30 mg .ROUTE .STK- MED ONE Stop: 12/26/19 19:19 Lidocaine HCl (Xylocaine-Mpf 0.5%) Confirm Administered Dose 50 ml .ROUTE .STK- MED ONE Stop: 12/26/19 20:27 Lidocaine/Epinephrine (Xylocaine-Mpf 2%-Epi 1:200,000) Confirm Administered Dose 20 ml .ROUTE .STK-MED ONE Stop: 12/26/19 19:20 Metoclopramide HCl (Reglan) 10 mg IVPUSH ONETIME ONE Stop: 12/26/19 19:01 Last Admin: 12/26/19 19:11 Dose: 10 mg Miscellaneous Medication (Phenylephrine 1 Mg/10 Ml-Ns) Confirm Administered Dose 1 mg IV .STK-MED ONE Stop: 12/26/19 20:08 Morphine Sulfate (Duramorph Pf) Confirm Administered Dose 1 mg .ROUTE .STK-MED ONE Stop: 12/26/19 19:58 Ondansetron HCl (Zofran) 4 mg IVPUSH Q4H PRN PRN Reason: Nausea/Vomiting Ondansetron HCl (Zofran) Confirm Administered Dose 4 mg .ROUTE .STK-MED ONE Stop: 12/26/19 19:19 Ondansetron HCl (Zofran) 4 mg IVPUSH ONETIME PRN PRN Reason: Nausea/Vomiting Oxytocin (Pitocin) Confirm Administered Dose 10 unit .ROUTE .STK-MED ONE Stop: 12/26/19 19:19 Oxytocin (Pitocin) Confirm Administered Dose 10 unit .ROUTE .STK-MED ONE Stop: 12/26/19 19:20 Sodium Bicarbonate (Sodium Bicarbonate 8.4%) Confirm Administered Dose 50 meq .ROUTE .STK-MED ONE Stop: 12/26/19 19:20 Sodium Bicarbonate (Sodium Bicarbonate 8.4%) Confirm Administered Dose 50 meq .ROUTE .STK-MED ONE Stop: 12/26/19 19:21 Sodium Chloride (Saline Flush) 10 ml FLUSH ASDIRECTED PRN PRN Reason: Keep Vein Open
== END 2019-12-28 14:55 | disposition home or self-care (01) | DRG 787 ==
LOC: JD.OB 18:56 → OBSVTOIN 12-26 20:01
PROVIDERS: ADMIT Obstetrics & Gynecology; ATTEND Obstetrics & Gynecology
PROC: 10D00Z1 Extraction of Products of Conception, Low, Open Approach (ICD-10-PCS; principal; 2019-12-26)
PROC: 10907ZC Drainage of Amniotic Fluid, Therapeutic from Products of Conception, Via Natural or Artificial Opening (ICD-10-PCS; 2019-12-26)
PROC: 10H07YZ Insertion of Other Device into Products of Conception, Via Natural or Artificial Opening (ICD-10-PCS; 2019-12-26)
PROC: 3E0R3BZ Introduction of Anesthetic Agent into Spinal Canal, Percutaneous Approach (ICD-10-PCS; 2019-12-26)
PROC: 3E0334Z Introduction of Serum, Toxoid and Vaccine into Peripheral Vein, Percutaneous Approach (ICD-10-PCS; 2019-12-27)
DX: O62.1 Secondary uterine inertia (principal); O75.2 Pyrexia during labor, not elsewhere classified; Z37.0 Single live birth; Z3A.39 39 weeks gestation of pregnancy; O26.893 Other specified pregnancy related conditions, third trimester; Z67.11 Type A blood, Rh negative
CPT/HCPCS: 01961; 36415; 51702; 59025; 85025; 85461; 86592; 86850; 86900; 86901; A9270-GY; J0171; J0456; J0690; J1200; J1885; J2001; J2274; J2370; J2405; J2590; J2765; J2790; J3010; J3490; J7050; J7120; J7121

== ENCOUNTER 2024-02-03 05:10 | Inpatient (IN) | payer OTHER ==
[~2024-02-03 05:10] MED LIST: Oxytocin/Lactated Ringers 30 UNIT/500 ML BAG IV SCH; Sodium Chloride 0.9% 10 ML Syringe FLUSH PRN
[2024-02-03] MEDS ORDERED: Lactated Ringers 1,000 ML IV SCH (05:30)
[2024-02-03] MEDS: Lactated Ringers 1,000 ML IV SCH (06:00)
[2024-02-03 06:05] LABS: BASOPHILS PERCENT AUTO 0.3 % (0.0-1.0); EOSINOPHILS ABSOLUTE AUTO 0.1 K/mm3 (0.0-0.4); EOSINOPHILS PERCENT AUTO 1.4 % (0.0-6.0); HEMATOCRIT 36.4 % (37.0-47.0); HEMOGLOBIN 12.4 gm/dl (12.0-16.0); IMMATURE GRAN ABSOLUTE AUTO 0.09 K/mm3 (0.00-0.05); IMMATURE GRAN PERCENT AUTO 0.9 % (0.0-0.4); LYMPHOCYTES ABSOLUTE AUTO 2.5 K/mm3 (1.0-4.8); LYMPHOCYTES PERCENT AUTO 25.6 % (24.0-44.0); MEAN CORPUSCULAR HEMOGLOBIN 30.2 pg (28.0-32.0); MEAN CORPUSCULAR HGB CONC 34.1 g/dl (32.0-36.0); MEAN CORPUSCULAR VOLUME 88.8 fl (83.0-99.0); MEAN PLATELET VOLUME 9.6 fl (9.4-12.3); MONOCYTES ABSOLUTE AUTO 0.6 K/mm3 (0.0-0.8); MONOCYTES PERCENT AUTO 5.8 % (0.0-8.0); NEUTROPHILS ABSOLUTE AUTO 6.4 K/mm3 (1.8-7.7); PLATELET COUNT,PLT 221 K/mm3 (150-400); WHITE BLOOD CELL COUNT,WBC 9.75 K/mm3 (3.9-11.3)
[2024-02-03 06:35] LABS: CREATININE 0.7 mg/dL (0.55-1.02); EST CRCL DRUG DOSING (CG) 89.56 mL/min
[2024-02-03] MEDS ORDERED: Morphine PF 10 MG/10 ML SDV ONE (06:53)
[2024-02-03] MEDS ORDERED: Oxytocin 10 Units/1 ML SDV ONE (06:54)
[2024-02-03] MEDS ORDERED: Phenylephrine 1% 10 MG/ML SDV ONE (06:54)
[2024-02-03] MEDS ORDERED: Ondansetron 4 MG/2 ML SDV ONE (06:54)
[2024-02-03] MEDS ORDERED: Sodium Chloride 0.9% 100 ML ONE (06:54)
[2024-02-03 06:55] LABS: URIC ACID 4.7 mg/dL (2.6-6.0)
[2024-02-03] MEDS ORDERED: ceFAZolin 2 GM Vial ONE (06:56)
[2024-02-03] MEDS ORDERED: Meperidine 50 MG/ML Vial IVPUSH PRN (07:03)
[2024-02-03] MEDS ORDERED: Ondansetron 4 MG/2 ML SDV IVPUSH PRN (07:03)
[2024-02-03] MEDS ORDERED: fentaNYL 100 MCG/2 ML SDV IVPUSH PRN (07:03)
[2024-02-03] MEDS ORDERED: Nalbuphine 10 MG/ML Syringe IVPUSH PRN (07:04)
[2024-02-03] MEDS: Metoclopramide 10 MG/2 ML SDV IVPUSH ONE (07:06)
[2024-02-03] MEDS: Citric Acid/Sodium Citrate Solution 30 ML Cup PO ONE ×2 (07:06→11:04)
[2024-02-03] MEDS: Famotidine 20 MG/2 ML SDV IVPUSH ONE (07:15)
[2024-02-03 07:40] LABS: CREATININE,URINE RAND 36.3 mg/dL (30.0-125.0); PROTEIN CREATININE RATIO,URINE 190.1 mg/g (0-149); PROTEIN,URINE RANDOM 6.9 mg/dL (0.0-11.8)
[2024-02-03] MEDS ORDERED: Naloxone 0.4 MG/ML SDV IVPUSH PRN (11:00)
[2024-02-03] MEDS ORDERED: Docusate Sodium 100 MG Cap PO PRN (11:00)
[2024-02-03] MEDS ORDERED: Ondansetron 4 MG/2 ML SDV IV PRN (11:00)
[2024-02-03] MEDS ORDERED: Sodium Chloride 0.9% 10 ML Syringe FLUSH PRN (11:00)
[2024-02-03] MEDS ORDERED: ePHEDrine 50 MG/ML SDV IVPUSH PRN (11:00)
[2024-02-03] MEDS ORDERED: diphenhydrAMINE 50 MG/ML SDV IVPUSH PRN (11:00)
[2024-02-03] MEDS ORDERED: Acetaminophen/oxyCODONE 325-5 MG Tab PO PRN (11:00)
[2024-02-03] MEDS: Metoclopramide 10 MG/2 ML SDV IM ONE (11:04)
[2024-02-03] MEDS: Sodium Chloride 0.9% 10 ML Syringe FLUSH SCH (11:05)
[2024-02-03] MEDS: ceFAZolin 2 GM in Sodium Chloride 0.9% 50 ML IV ONE (11:05)
[2024-02-03] MEDS: Ketorolac 30 MG/ML SDV IVPUSH SCH (11:09)
[2024-02-03] MEDS: diphenhydrAMINE 50 MG/ML SDV IVPUSH PRN (11:10)
[2024-02-03] MEDS: Dextrose 5%-Lactated Ringers 1,000 ML IV SCH (12:56)
[2024-02-04] MEDS: Ibuprofen 600 MG Tab PO PRN (04:08)
[2024-02-04 06:04] LABS: BASOPHILS PERCENT AUTO 0.3 % (0.0-1.0); EOSINOPHILS ABSOLUTE AUTO 0.1 K/mm3 (0.0-0.4); EOSINOPHILS PERCENT AUTO 1.1 % (0.0-6.0); HEMATOCRIT 31.8 % (37.0-47.0); HEMOGLOBIN 10.5 gm/dl (12.0-16.0); IMMATURE GRAN PERCENT AUTO 0.9 % (0.0-0.4); LYMPHOCYTES ABSOLUTE AUTO 2.1 K/mm3 (1.0-4.8); LYMPHOCYTES PERCENT AUTO 19.9 % (24.0-44.0); MEAN CORPUSCULAR HEMOGLOBIN 29.9 pg (28.0-32.0); MEAN CORPUSCULAR VOLUME 90.6 fl (83.0-99.0); MONOCYTES ABSOLUTE AUTO 0.7 K/mm3 (0.0-0.8); MONOCYTES PERCENT AUTO 6.4 % (0.0-8.0); NEUTROPHILS ABSOLUTE AUTO 7.6 K/mm3 (1.8-7.7); NEUTROPHILS PERCENT AUTO 71.4 % (41.0-71.0); PLATELET COUNT,PLT 171 K/mm3 (150-400); RED BLOOD CELL COUNT 3.51 M/mm3 (4.10-5.30); WHITE BLOOD CELL COUNT,WBC 10.64 K/mm3 (3.9-11.3)
[2024-02-04] MEDS: Acetaminophen/oxyCODONE 325-5 MG Tab PO PRN (10:47)
== END 2024-02-04 16:51 | disposition home or self-care (01) | DRG 788 ==
LOC: JD.OB 05:10 → OBSVTOIN 08:29 → UNDODISOB 02-04 16:36
PROVIDERS: ADMIT Obstetrics & Gynecology; ATTEND Obstetrics & Gynecology
PROC: 10D00Z1 Extraction of Products of Conception, Low, Open Approach (ICD-10-PCS; principal; 2024-02-03 08:00)
DX: O34.211 Maternal care for low transverse scar from previous cesarean delivery (principal); O48.0 Post-term pregnancy; Z3A.40 40 weeks gestation of pregnancy; Z37.0 Single live birth
CPT/HCPCS: 36415; 59025; 82565; 82570; 83615; 84156; 84450; 84460; 84520; 84550; 85025; 85461; 86592; 86850; 86900; 86901; A9270-GY; J0690; J1200; J1885; J2274; J2371; J2405; J2590; J2765; J2790; J3490; J7120; J7121